=== PATIENT | female | born 1990 | race Caucasian/White ===

== ENCOUNTER 2017-01-08 12:54 | Observation (INO) ==
[2017-01-08 15:01] LABS: Basophils % 0.2 % (0.0-0.8); Eosinophils # 0.1 10*3/uL (0.0-0.87); Eosinophils % 0.3 % (0.00-10.9); Hematocrit 38.5 VOL% (35.7-47.0); Immature Granulocytes % 0.5 %; Immature Granulocytes Absolute 0.07 #; Lymphocytes % 6.9 % (21.3-54.2); Mean Corpuscular HGB Conc 33.8 GM/DL (32-36); Mean Corpuscular Hemoglobin 31 PG (27-34); Mean Corpuscular Volume 92.5 FL (87-102); Mean Platelet Volume 9.8 FL (9.6-12.0); Monocytes # 1.2 10*3/uL (0.11-0.8); Monocytes % 7.8 % (1.7-12.7); Neutrophils # 12.4 10*3/uL (1.4-7.4); Neutrophils % 84.3 % (38.7-73.9); Platelet Count 190 T/CUMM (130-400); Red Blood Count 4.16 MC/CUMM (3.8-5.5); Red Cell Distribution Width 13.5 % (9.3-17.3); White Blood Count 14.7 T/CUMM (4-12)
[2017-01-08] MEDS ORDERED: KETOROLAC 30 MG/1 ML VIAL IM STA (15:58)
--- NOTE | 2017-01-08 15:58 | Ultrasound Report ---
Exam: US transabdominal TV pelvis Date: 01/08/2017 2:46 PM Comparison: 04/16/2011 Indication: Right lower quadrant pain Technique:[Multiple transvaginal real-time scans were obtained of the pelvis. Color-flow scans obtained. Ultrasound images were captured and stored.] Findings: The uterus is anteverted and its position and measures 64 x 42 x 54 mm. The endometrial stripe measures 12 mm. The endometrial cavity is distended by echogenic findings measuring 17 x 16 x 14 mm. The left ovary is not identified with minimal free fluid in the left adnexal location. Solid-appearing 48 x 41 x 38 mm abnormality in the right ovarian location. There is an adjacent 20 x 11 x 10 mm finding which may represent residual more normal appearing ovarian tissue. There is blood flow documented within these findings. Impression: Thickening of the endometrial stripe and echogenic findings in the endometrial cavity which can be seen with hyperplasia, polyps, endometritis, carcinoma, etc. Left ovary not identified. 48 x 41 x 38 mm solid-appearing abnormality in the right adnexal location. There is blood flow within this finding suggests possible mass rather than pelvic inflammatory disease, ovarian torsion, endometrioma, etc. Follow-up recommended. PROCEDURE INTERPRETED AT [facility] DEPARTMENT OF RADIOLOGY Final Report Signed by: Dr. Diane Will
[2017-01-08] MEDS ORDERED: KETOROLAC 60 MG/2 ML VIAL IM ONE (16:01)
--- NOTE | 2017-01-08 16:10 | Emergency Department Note ---
Arrival - Arrival Chief Complaint: Abdominal / Flank Pain Stated Complaint: pain on right side of stomach ED Nursing Triage Note: Pt c/o right sided abd pain onset x 3 days - pt states that she was seen and treated at [facility] this am and was dx with ovarian cyst and UTI Mode of Arrival: Wheelchair Time Seen by Provider: 01/08/17 14:10 - History of Present Illness HPI Narrative: - History of Present Illness 26 yo white female MD Complaint: abdominal pain Onset (ago): 3 days Consistency: Constant, colicky Location: Right lower quadrant radiating into her right groin and leg Radiation: Right groin and leg Improves with: Putting pressure on abdomen Context: History of similar episodes, but states that this is worse than ever," unbearable" Associated Symp: Nausea, vomiting Treatments prior to arrival: Toradol shot, prescription analgesics PCP: [none] [facility]: Dr. Deras PMHx: History of kidney stones, recurring UTIs, back and neck problems, sees rash pain treatment Patient was seen earlier today at [facility] had extensive workup, including lab and CT. CT showed possible cyst in the right ovary. Differential considerations include PID, ovarian torsion, salpingitis. Recommended ultrasound. They did not do an ultrasound rash. She called her OB, Dr. Deras and the nurse instructed her to come to [facility] to be checked for appendicitis. Date of Last Menstrual Period: irregular Allergies/Adverse Reactions: Allergies Allergy/AdvReac Type Severity Reaction Status Date / Time ciprofloxacin [From Cipro] Allergy Verified 04/10/16 06:10 promethazine [From Phenergan] Allergy Verified 04/10/16 06:10 sulfamethoxazole Allergy Verified 04/10/16 06:10 [From Bactrim] trimethoprim [From Bactrim] Allergy Verified 04/10/16 06:10 Home Medications: Home Medications Medication Instructions Recorded Confirmed Type Vit 108/Iron/Folic AC 1 mg PO QAM 01/11/16 01/08/17 History [ One Tablet] Vitamin E Mixed [Vitamin E] 400 unit PO QAM 04/09/16 01/08/17 History Ascorbic Acid Tab [Vitamin C Tab] 500 mg PO QAM 01/08/17 01/08/17 History Cyanocobalamin Tab [Vitamin B12 500 mcg PO QAM 01/08/17 01/08/17 History Tab] Ibuprofen Tab [Motrin Tab] 800 mg PO Q6-8H 01/08/17 01/08/17 History buPROPion [Wellbutrin] 75 mg PO BID 01/08/17 01/08/17 History Review of System - Review of System 12 point system: reviewed and no additional remarkable complaints except as stated - Review of System Gastrointestinal: Present: abdominal pain, nausea, vomiting Medical,Surgical,& Family Hx - Medical History Genitourinary: History of: Kidney Stones, Recurring Urinary Tract Infections Musculoskeletal: History of: Back/Neck Problems (GOES TO PAIN CLINIC) Reproductive: History of: Abnormal Pap Smear Comment Only: Reproductive Problems (LMP 9 MONTHS AGO) Other: History of: MRSA - Surgical History HEENT Surgeries: Surgical HX of: Tonsilectomy & Adenoidectomy - Family History Family History: Reports;: Family Hypertension (MOTHER, MGM), Family Psychiatric Problems (ADHD: MOTHER, SIBLINGS; FATHER-SCHITZOID, DRUG ABUSE, ETOH ABUSE, DEPRESSIO), Family Stroke (MGM) - Social History Smoking Status: Current every day smoker Frequency of Alcohol Use: None Type of Drug Use: None Exam Physical Examination: Exam - General General appearance: alert, in no apparent distress - Head Head exam: Present: atraumatic, normocephalic - Eye Eye exam: Present: normal appearance, PERRL, normal ocular movement - Neck Neck exam: Present: normal inspection, full ROM - Chest Chest inspection: Present: normal inspection, symmetric chest wall rise - Respiratory Respiratory exam: Present: normal lung sounds bilaterally. Absent: rales, rhonchi, wheezes - Cardiovascular Cardiovascular exam: Present: regular rate, normal rhythm, normal heart sounds, no murmur - Abdominal Exam Abdominal exam: Present: Soft, normal bowel sounds, tenderness to palpation in right lower quadrant, rebound tenderness present. - Extremities Exam Extremities exam: Present: normal inspection, full ROM - Back Exam Back exam: Present: normal inspection - Musculoskeletal: Present: Normal gait, normal posture - Neurological Exam Neurological exam: Present: alert, oriented X3, normal coordination - Psychiatric Psychiatric exam: Present: normal affect, normal mood, oriented to time, oriented to person, oriented to place, speech is normal, memory intact - Skin Skin exam: Present: warm, dry, intact, no rash, no growths, no abnormal pigmentation Vital Signs: Vital Signs Temperature 98.9 F 01/08/17 17:45 Pulse Rate 86 01/08/17 17:45 Respiratory Rate 20 01/08/17 17:45 Blood Pressure 122/72 01/08/17 17:45 O2 Sat by Pulse Oximetry 100 01/08/17 17:45 Course - Consultations Time: 16:30 (Dr. Deras-will admit patient) Results - Labs CBC & BMP: 01/08/17 14:50 01/08/17 14:50 - Diagnostic Findings Procedure: Ultrasound: report reviewed by me (Pelvic US: Left ovary not identified. [id number] solid-appearing abnormality in the right adnexal location. There is blood flow within this finding suggests possible mass rather than pelvic inflammatory disease, ovarian torsion, endometrioma, etc. Follow-up is recommended.) Disposition Clinical Impression: Pelvic mass Disposition: Still a Patient Time of Disposition: 17:00
[2017-01-08] MEDS ORDERED: BISACODYL 10 MG SUPP RECTAL PRN (16:35)
[2017-01-08] MEDS ORDERED: IBUPROFEN 800 MG TABLET PO PRN (16:35)
[2017-01-08] MEDS ORDERED: ACETAMINOPHEN 325 MG TABLET PO PRN (16:35)
[2017-01-08] MEDS ORDERED: ONDANSETRON 4 MG/2 ML VIAL IV PRN (16:35)
[2017-01-08] MEDS ORDERED: DEXTROSE 5% NACL 0.45% 1,000 ML IV SCH (17:30)
[2017-01-08 17:34] LABS: Alanine Aminotransferase 10 U/L (13-56); Albumin 3.6 G/DL (3.4-5.0); Alkaline Phosphatase 58 U/L (45-117); Aspartate Amino Transferase 5 U/L (0-37); Beta HCG Titer < 1.0 mIU/ml (1-3); Blood Urea Nitrogen 6 MG/DL (7-18); Calcium 8.5 MG/DL (8.5-10.1); Glucose 119 MG/DL (74-106); Osmolality,Calculated 279.3 MOS/KG (273-304); Potassium 3.5 MMOL/L (3.5-5.1); Sodium 141 MMOL/L (136-145); Total Protein 6.8 G/DL (6.4-8.3)
[2017-01-08] MEDS: PANTOPRAZOLE 40 MG VIAL IV SCH (18:25)
[2017-01-08] MEDS: MORPHINE 2 MG/1 ML SYRINGE IV PRN ×2 (18:30→20:22)
[2017-01-08] MEDS ORDERED: NICOTINE 21 MG/24 HR PATCH TRANSDERM PRN (19:19)
--- NOTE | 2017-01-08 19:38 | OB/GYN History & Physical ---
History of Present Illness Chief complaint: RLQ pain x 3 days; 4.8cm solid mass of right adnexa History of present illness: Ms. Landon is a 26 year old female who was seen at [facility] earlier in the day with complaints of RLQ pain. Had CT there with no abn's reported to pt. She was diagnosed with UTI due to hematuria per pt. Pt with persistent pain so she came to [facility] and US showed solid right adnexal mass. WBCs were 14,000 so pt was admitted for IV abx and pain mgt and discussion for surgery. Records reviewed from my office from last year. No solid mass was noted on US in ~01/2016. Pt had Hysteroscopy, D&C, Ablation, Lap BTL last year. Pathology was benign. Pt desires definitive surgery so we discussed RTLH, RSO, poss LSO, poss open. BRCA discussed with pt and her mother in great detail. They voiced understanding and pt wishes to proceed. Posted on schedule for surgery tomorrow. Home Medications Medication Instructions Recorded Confirmed Type Vit 108/Iron/Folic AC 1 mg PO QAM 01/11/16 01/08/17 History [ One Tablet] Vitamin E Mixed [Vitamin E] 400 unit PO QAM 04/09/16 01/08/17 History Ascorbic Acid Tab [Vitamin C Tab] 500 mg PO QAM 01/08/17 01/08/17 History Cyanocobalamin Tab [Vitamin B12 500 mcg PO QAM 01/08/17 01/08/17 History Tab] Ibuprofen Tab [Motrin Tab] 800 mg PO Q6-8H 01/08/17 01/08/17 History buPROPion [Wellbutrin] 75 mg PO BID 01/08/17 01/08/17 History Allergies Allergy/AdvReac Type Severity Reaction Status Date / Time ciprofloxacin [From Cipro] Allergy Verified 04/10/16 06:10 promethazine [From Phenergan] Allergy Verified 04/10/16 06:10 sulfamethoxazole Allergy Verified 04/10/16 06:10 [From Bactrim] trimethoprim [From Bactrim] Allergy Verified 04/10/16 06:10 Medical,Surgical,& Family Hx - Medical History Genitourinary: History of: Kidney Stones, Recurring Urinary Tract Infections Musculoskeletal: History of: Back/Neck Problems (GOES TO PAIN CLINIC) Reproductive: History of: Abnormal Pap Smear Comment Only: Reproductive Problems (LMP 9 MONTHS AGO) Other: History of: MRSA - Surgical History HEENT Surgeries: Surgical HX of: Tonsilectomy & Adenoidectomy Reproductive Surgeries: Comment Only: Dilation and Curettage (ablation) - Family History Family History: Reports;: Family Hypertension (MOTHER, MGM), Family Psychiatric Problems (ADHD: MOTHER, SIBLINGS; FATHER-SCHITZOID, DRUG ABUSE, ETOH ABUSE, DEPRESSIO), Family Stroke (MGM) - Social History Smoking Status: Current every day smoker Frequency of Alcohol Use: None Type of Drug Use: None Exam [employer] - Constitutional Vitals: Vital Signs Temp Pulse Pulse Resp BP Pulse Ox Pulse Ox 01/08/17 17:45 98.9 F 86 20 122/72 100 01/08/17 17:02 59 L 20 117/76 99 General appearance: normal weight, no acute distress - Head Head exam: Present: normal inspection, normocephalic - Eye Eye exam: Present: EOMI - Respiratory Respiratory exam: Present: clear to auscultation bilaterally - Cardiovascular Cardiovascular exam: Present: regular rate and rhythm - GI/Abdominal GI/Abdominal exam: Present: soft - Extremities Exam Extremities exam: Present: normal inspection - Neurological Exam Neurological exam: Present: alert, oriented X3 - Psychiatric Psychiatric exam: Present: normal affect, normal mood - Skin Skin exam: Present: normal color, warm Assessment and Plan (1) Adnexal mass Status: Acute Current Visit: Yes (2) Hx of surgery to major organs, presenting hazards to health Status: Acute Current Visit: Yes Results - Labs CBC & BMP: 01/08/17 14:50 01/08/17 14:50 Lab Results: I have reviewed the past 24 hour labs Quality Measures - VTE Contraindication to Pharmacological VTE Prophylaxis: Clinical assessment deems Pt at low risk, no prophalaxis needed
[2017-01-08 20:23] LABS: Basophils % 0.1 % (0.0-0.8); Eosinophils # 0.1 10*3/uL (0.0-0.87); Eosinophils % 0.4 % (0.00-10.9); Hematocrit 34.6 VOL% (35.7-47.0); Hemoglobin 11.8 GM/DL (12.0-16.0); Immature Granulocytes % 0.4 %; Immature Granulocytes Absolute 0.05 #; Lymphocytes # 1.4 10*3/uL (1.4-4.0); Lymphocytes % 12.1 % (21.3-54.2); Mean Corpuscular HGB Conc 34.1 GM/DL (32-36); Mean Corpuscular Hemoglobin 32 PG (27-34); Mean Corpuscular Volume 92.8 FL (87-102); Monocytes # 0.4 10*3/uL (0.11-0.8); Monocytes % 3.7 % (1.7-12.7); Neutrophils # 9.4 10*3/uL (1.4-7.4); Neutrophils % 83.3 % (38.7-73.9); Platelet Count 169 T/CUMM (130-400); Red Blood Count 3.73 MC/CUMM (3.8-5.5); Red Cell Distribution Width 13.4 % (9.3-17.3); White Blood Count 11.3 T/CUMM (4-12)
[2017-01-08 20:43] LABS: Albumin 3.2 G/DL (3.4-5.0); Bilirubin,Total 0.5 MG/DL (0.2-1.0); Calcium 7.9 MG/DL (8.5-10.1); Osmolality,Calculated 284.1 MOS/KG (273-304); Potassium 3.1 MMOL/L (3.5-5.1); Total Protein 5.9 G/DL (6.4-8.3)
[2017-01-09] MEDS: DOCUSATE SODIUM 100 MG CAPSULE PO SCH ×3 (01:41→20:10)
[2017-01-09] MEDS: cefOXitin 1,000 MG in SODIUM CHLORIDE 0.9% 100 ML IV SCH ×2 (01:47→09:30)
[2017-01-09] MEDS: MORPHINE 2 MG/1 ML SYRINGE IV PRN ×4 (02:14→20:40)
[2017-01-09] MEDS: LACTATED RINGERS 1,000 ML IV SCH ×5 (05:02→23:45)
[2017-01-09 07:19] LABS: Basophils % 0.2 % (0.0-0.8); Eosinophils # 0.1 10*3/uL (0.0-0.87); Eosinophils % 0.4 % (0.00-10.9); Hematocrit 34.6 VOL% (35.7-47.0); Hemoglobin 11.5 GM/DL (12.0-16.0); Immature Granulocytes % 0.4 %; Immature Granulocytes Absolute 0.05 #; Lymphocytes # 1.2 10*3/uL (1.4-4.0); Lymphocytes % 10.3 % (21.3-54.2); Mean Corpuscular HGB Conc 33.2 GM/DL (32-36); Mean Corpuscular Hemoglobin 31 PG (27-34); Mean Corpuscular Volume 93.5 FL (87-102); Mean Platelet Volume 10.3 FL (9.6-12.0); Monocytes # 0.9 10*3/uL (0.11-0.8); Monocytes % 7.8 % (1.7-12.7); Neutrophils # 9.3 10*3/uL (1.4-7.4); Neutrophils % 80.9 % (38.7-73.9); Platelet Count 161 T/CUMM (130-400); Red Cell Distribution Width 13.4 % (9.3-17.3); White Blood Count 11.5 T/CUMM (4-12)
[2017-01-09 07:33] LABS: Calcium 8.1 MG/DL (8.5-10.1); Potassium 3.6 MMOL/L (3.5-5.1)
[2017-01-09] MEDS: PANTOPRAZOLE 40 MG VIAL IV SCH ×2 (07:42→09:00)
[2017-01-09] MEDS ORDERED: TISSUE ADHESIVE 1 EACH APPLICATOR TOP ONE ×2 (09:05→10:38)
[2017-01-09 09:17] LABS: Apearance,Urine Slightly Hazy (Clear); Bilirubin,Urine Negative (Negative); Blood, Urine Negative (Negative); Glucose,Urine (UA) Negative (Negative); Ketones,Urine 5 mg/dL (Negative); Mucus,Urine Few /LPF (Occasional); Nitrite,Urine Negative (Negative); Protein,Urine Negative; RBC,Urine 2 /HPF (0-4); Squamous Epithelial Cell,Urine Occasional /HPF (0-10); Urine Color Yellow (Yellow); Urine Specific Gravity 1.019 (1.001-1.035); WBC,Urine 5 /HPF (0-6)
[2017-01-09] MEDS ORDERED: ESTRADIOL 0.01% VAG CREAM 42.5 GM TUBE VAG ONE (10:11)
[2017-01-09] MEDS: HYDROmorphone 2 MG/1 ML VIAL IV PRN ×4 (10:53→11:08)
--- NOTE | 2017-01-09 10:56 | Anesthesia Post-Op ---
Anesthesia Post OP - Post Ansesthetic Evaluation Patient seen in post op: Yes Resp: within normal limits CV: within normal limits Mental: within normal limits Temp: within normal limits [id number]: within normal limits Nausea and Vomiting: within normal limits Pain: within normal limits
[2017-01-09] MEDS ORDERED: ONDANSETRON 4 MG/2 ML VIAL ONE (10:58)
[2017-01-09] MEDS ORDERED: SUFentanil 50 MCG/ML AMP ONE (10:58)
[2017-01-09] MEDS ORDERED: DESFLURANE 1 UNIT/15 MINUTE INH ONE (10:58)
[2017-01-09] MEDS ORDERED: ACETAMINOPHEN 1,000 MG/100 ML VIAL IV ONE (10:58)
[2017-01-09] MEDS ORDERED: LACTATED RINGERS 1,000 ML IV ONE (10:58)
[2017-01-09] MEDS ORDERED: MIDAZOLAM 2 MG/2 ML VIAL ONE (10:58)
[2017-01-09] MEDS ORDERED: HYDROmorphone 2 MG/1 ML VIAL ONE (10:58)
[2017-01-09] MEDS ORDERED: ONDANSETRON 4 MG/2 ML VIAL IV PRN (11:12)
[2017-01-09] MEDS: MEPERIDINE 25 MG/1 ML VIAL IV PRN ×3 (11:20→11:50)
[2017-01-09] MEDS ORDERED: MEPERIDINE 25 MG/1 ML VIAL ONE ×2 (11:21→11:47)
[2017-01-09] MEDS ORDERED: MEPERIDINE 25 MG/1 ML VIAL IV PRN (11:48)
[2017-01-09] MEDS: SIMETHICONE CHEW 80 MG TABLET PO PRN ×2 (12:53→20:10)
[2017-01-09] MEDS: MAGNESIUM HYDROXIDE SUSP 30 ML UDCUP PO PRN ×2 (14:50→20:10)
[2017-01-09] MEDS ORDERED: METOCLOPRAMIDE 10 MG/2 ML VIAL IV PRN (20:59)
[2017-01-09] MEDS ORDERED: METOCLOPRAMIDE 10 MG/2 ML VIAL IV ONE (21:00)
[2017-01-09] MEDS ORDERED: BISACODYL 10 MG SUPP RECTAL ONE (21:01)
[2017-01-09] MEDS ORDERED: FLUCONAZOLE 150 MG TABLET PO ONE (22:25)
[2017-01-10] MEDS: oxyCODONE/ACETAMINOPHEN 5-325 MG TABLET PO PRN ×2 (01:49→10:01)
[2017-01-10] MEDS: SIMETHICONE CHEW 80 MG TABLET PO PRN (04:30)
[2017-01-10 05:48] LABS: Eosinophils % 0.3 % (0.00-10.9); Hematocrit 29.3 VOL% (35.7-47.0); Hemoglobin 9.8 GM/DL (12.0-16.0); Immature Granulocytes % 0.3 %; Immature Granulocytes Absolute 0.03 #; Lymphocytes # 1.3 10*3/uL (1.4-4.0); Lymphocytes % 14.9 % (21.3-54.2); Mean Corpuscular HGB Conc 33.4 GM/DL (32-36); Mean Corpuscular Hemoglobin 31 PG (27-34); Mean Corpuscular Volume 91.3 FL (87-102); Mean Platelet Volume 10.5 FL (9.6-12.0); Monocytes # 0.8 10*3/uL (0.11-0.8); Monocytes % 8.3 % (1.7-12.7); Neutrophils # 6.9 10*3/uL (1.4-7.4); Neutrophils % 76.2 % (38.7-73.9); Platelet Count 146 T/CUMM (130-400); Red Blood Count 3.21 MC/CUMM (3.8-5.5); Red Cell Distribution Width 13.5 % (9.3-17.3)
--- NOTE | 2017-01-10 08:22 | OB/GYN Progress Note ---
Assessment and Plan (1) Pelvic mass Status: Acute Assessment and plan: POD #1 s/p RTLH/RSO. doing well. d/c home today with precautions . Current Visit: Yes [employer] [facility]ER - PN: Subj Interval history: The pt is constipated but she had a BM yesterday. She is feeling better. Her pain is under control. Exam [employer] - Constitutional Vitals: Vital Signs Temp Pulse Pulse Resp BP Pulse Ox Pulse Ox 01/10/17 04:30 98.1 F 67 20 133/67 96 01/10/17 02:49 18 01/09/17 23:45 99.0 F 62 20 130/72 96 01/09/17 22:00 20 01/09/17 20:00 98.6 F 61 20 120/79 97 01/09/17 15:19 97.9 F 100 H 19 130/82 100 01/09/17 14:16 98 H 20 144/81 98 01/09/17 13:15 95 H 20 142/80 99 01/09/17 12:41 98.7 F 90 19 139/84 99 01/09/17 12:18 97.9 F 88 18 136/78 99 01/09/17 12:15 97.9 F 95 H 20 136/78 99 01/09/17 12:03 97.9 F 93 H 20 127/80 99 01/09/17 11:53 78 18 132/72 99 01/09/17 11:43 96 H 20 126/72 98 01/09/17 11:33 93 H 16 126/78 99 01/09/17 11:23 86 16 129/80 99 01/09/17 11:13 85 18 121/83 99 01/09/17 11:03 81 18 128/79 98 01/09/17 10:58 85 18 127/75 100 01/09/17 10:53 83 19 130/83 100 01/09/17 10:48 86 20 129/77 99 01/09/17 10:43 98.6 F 95 H 16 128/75 100 General appearance: no acute distress - Respiratory Respiratory exam: Absent: accessory muscle use - Cardiovascular Cardiovascular exam: Present: regular rate and rhythm - GI/Abdominal GI/Abdominal exam: Present: tenderness (appropriately mildly tender). Absent: guarding, rebound - Extremities Exam Extremities exam: Absent: calf tenderness - Neurological Exam Neurological exam: Present: alert, oriented X3 - Psychiatric Psychiatric exam: Present: normal affect, normal mood - Skin Skin exam: Present: normal color, warm Results - Labs CBC & BMP: 01/10/17 05:28 01/09/17 06:52
[2017-01-10] MEDS: DOCUSATE SODIUM 100 MG CAPSULE PO SCH (10:01)
[2017-01-10 11:26] VITALS: BP 133/79
--- NOTE | 2017-01-12 10:23 | Pathology Report from [facility] ---
ACCESSION # : [id number] PATIENT NAME : Anjelica Landon ORDERING DR : BEATRICE WATSON CLINICAL HX: Right lower quadrant pain - Right adrenal mass POST-OP DX: Same SPECIMEN INFO: Uterus, cervix, right and left tube, right ovary GROSS DESCRIPTION: The specimen is received in formalin labeled with the patient 's name and consists of an 85 gram uterus and cervix which measures 7.9 x 7.0 x 3.5 cm. The serosa is red-degroot and free of adhesions. The cervix measures 3.2 cm. The cervical os measures 0.7 cm. The endocervical canal is degroot and patent. The endometrial cavity is hemorrhagic with a mucosal thickness of 0.2 cm. The lower uterine segment is markedly stenotic. Sectioning reveals no gross abnormalities. The right ovary measures 5.0 x 2.8 cm. Sectioning reveals multiple hemorrhagic cysts measuring up to 0.9 cm. The adjacent fallopian tube is fimbriated and measures 8.0 x 0.9 cm. The tube is markedly hemorrhagic with shaggy hemorrhagic areas noted adjacent to the tube which may represent a collapsed hemorrhagic cyst. The left tube is fimbriated and measures 7.5 x 0.6 cm. The left ovary is not received. Sections submitted: A cervix, B and C endomyometrium, D posterior uterine serosa, E right ovary and tube, F left tube. DIAGNOSIS FOR ANJELICA LANDON: UTERUS, RIGHT AND LEFT TUBES, RIGHT OVARY, HYSTERECTOMY: Chronic cervicitis. Proliferative endometrium. Leiomyoma ( posterior uterine serosa). Multiple subcortical follicular cysts. Hematosalpinx , left. SERVICE DATE: 01/10/2017 REPORT DATE: 01/12/2017 PATHOLOGIST: Saranya Contreras III, M.D. MTDD
== END 2017-01-10 10:30 | disposition home or self-care (01) ==
LOC: N.ED 12:54 → N.EDINP 12:54 → N.OB 17:25
PROVIDERS: ADMIT Obstetrics & Gynecology; ATTEND Obstetrics & Gynecology